=== PATIENT | male | born 1965 | race American Indian/Alaskan Native ===

== ENCOUNTER 2017-06-02 07:29 | Day surgery (SDC) | payer OTHER ==
[2017-06-02 08:05] VITALS: BMI 22.5
[2017-06-02] MEDS ORDERED: Propofol 10 mg/ml Inj (20 ML) ONE ×2 (09:38→10:06)
[2017-06-02] MEDS ORDERED: Lactated Ringer's 500 ML IV ONE (09:46)
[2017-06-02 11:05] VITALS: O2SAT 100
[2017-06-02 12:04] VITALS: BP 124/89; PULSE 65; RESP 12; TEMP 97.2
== END 2017-06-02 11:30 | disposition home health service (06) ==
LOC: C.ENDO 07:29
PROVIDERS: ATTEND Internal Medicine Gastroenterology
DX: Z12.11 Encounter for screening for malignant neoplasm of colon (principal); Z12.12 Encounter for screening for malignant neoplasm of rectum; K64.8 Other hemorrhoids; I10 Essential (primary) hypertension; K76.89 Other specified diseases of liver; F99 Mental disorder, not otherwise specified
CPT/HCPCS: 45378; J2001; J2704; J7120